=== PATIENT | female | born 1985 | race Caucasian/White ===

== ENCOUNTER 2017-12-26 16:57 | Emergency (ER) | payer OTHER ==
--- NOTE | 2017-12-26 17:16 | ED Physician Documentation ---
PD HPI NVD - Stated complaint Stated Complaint: VOM/16 WKS - Chief complaint Chief Complaint: Abd Pain - History obtained from History obtained from: Patient - History of Present Illness Timing - onset: Last night Timing - details: Abrupt onset, Still present Associated symptoms: Loss of appetite. No: Fever, Abdominal pain, Chest pain, Dysuria Contributing factors: No: Sick contact, Bad food, Travel Similar symptoms before: Has not had sx before (has had minimal nausea through the so far.) Recently seen: Not recently seen Review of Systems Constitutional: denies: Fever, Chills, Myalgias Nose: denies: Rhinorrhea / runny nose, Congestion Throat: denies: Sore throat Cardiac: denies: Chest pain / pressure, Palpitations Respiratory: denies: Dyspnea, Cough GI: reports: Nausea, Vomiting. denies: Abdominal Pain, Constipation, Diarrhea (but had loose stools today), Hematemesis : denies: Dysuria, Frequency Neurologic: reports: Generalized weakness. denies: Focal weakness, Numbness, Near syncope (but feeling posturally lightheaded.) PD PAST MEDICAL HISTORY - Present Medications Home Medications: Ambulatory Orders Medication Instructions Recorded Confirmed Pnv No.122/Iron/Folic Acid 1 each PO DAILY 12/26/17 12/26/17 [ Multi Tablet] - Allergies Allergies/Adverse Reactions: Allergies Allergy/AdvReac Type Severity Reaction Status Date / Time No Known Drug Allergies Allergy Verified 12/26/17 17:06 PD ED PE NORMAL - Vitals Vital signs reviewed: Yes - General General: Alert and oriented X 3, Well developed/nourished - HEENT HEENT: PERRL, Pharynx benign. No: Moist mucous membranes - Neck Neck: Supple, no meningeal sign, No adenopathy - Cardiac Cardiac: RRR, No murmur - Respiratory Respiratory: Clear bilaterally - Abdomen Abdomen: Normal bowel sounds, Soft, Non tender, Non distended, No organomegaly - Female Female : Deferred, Other (no pelvic, but did do bedside U/S showing normal IUP with movement and good heart beat. ) - Rectal Rectal: Deferred - Back Back: No CVA TTP - Derm Derm: Normal color, Warm and dry - Extremities Extremities: Normal ROM s pain, No edema, No calf tenderness / cord - Neuro Neuro: Alert and oriented X 3, No motor deficit, Normal speech Results - Vitals Vitals: Oxygen O2 Source Room air - Labs Labs: Laboratory Tests 12/26/17 12/26/17 18:11 18:11 Sodium 135 Potassium 3.3 L Chloride 104 Carbon Dioxide 23 Anion Gap 8.0 BUN 10 Creatinine 0.5 Estimated GFR (MDRD) 143 Glucose 139 H Calcium 8.9 Total Bilirubin 0.3 AST 21 ALT 11 Alkaline Phosphatase 48 Total Protein 6.5 L Albumin 3.5 Globulin 3.0 Albumin/Globulin Ratio 1.2 Lipase 33 Urine Color YELLOW Urine Clarity CLEAR Urine pH 6.0 Ur Specific Muse 1.025 Urine Protein NEGATIVE Urine Glucose (UA) NEGATIVE Urine Ketones >=80 H Urine Occult Blood LARGE H Urine Nitrite NEGATIVE Urine Bilirubin NEGATIVE Urine Urobilinogen 0.2 (NORMAL) Ur Leukocyte Esterase NEGATIVE Urine RBC 11-25 H Urine WBC 4-5 Ur Squamous Epith Cells MANY Squamous H Urine Bacteria Many H Ur Microscopic Review INDICATED Urine Culture Comments NOT INDICATED PD MEDICAL DECISION MAKING - ED course Complexity details: re-evaluated patient (feeling much better with fluids and meds. ), considered differential (Given the abruptness and severity of the nausea and vomiting, with minimal symptoms so far into the at 16 weeks, I think it may be more likely a viral illness. Exam without tenderness to suggest gallbladder or appendix. ), d/w patient - Sepsis Event Vital Signs: Oxygen O2 Source Room air Departure - Departure Disposition: 01 Home, Self Care Clinical Impression: Vomiting or nausea of , Dehydration Condition: Stable Record reviewed to determine appropriate education?: Yes Instructions: ED Nausea Vomiting Follow-Up: Gia Stevens MD [Primary Care Provider] - Comments: Use the Zofran if needed for nausea. Small frequent fluids tonight and some bland food. This may be caused by the although more likely is a viral stomach flu or such and should be improved in a couple of days. I say that because of the abruptness and severity of the nausea and vomiting to sound less likely to be the related alone. Recheck if not better over the next few days. Discharge Date/Time: 12/26/17 19:54
[2017-12-26] MEDS ORDERED: ONDANSETRON 4 MG/2 ML VIAL IVP STA (17:32)
[2017-12-26] MEDS ORDERED: SODIUM CHLORIDE 0.9% 1,000 ML IV ONE ×2 (17:32→17:33)
[2017-12-26] MEDS ORDERED: FAMOTIDINE 20 MG/2 ML VIAL IVP STA (17:33)
[2017-12-26] MEDS ORDERED: ACETAMINOPHEN 1,000 MG/100 ML 100 ML IV STA (17:33)
[2017-12-26 18:30] LABS: ALBUMIN 3.5 g/dL (3.2-5.5); ALBUMIN/GLOBULIN RATIO 1.2 (1.0-2.2); BILIRUBIN,TOTAL 0.3 mg/dL (0.2-1.0); CALCIUM 8.9 mg/dL (8.5-10.3); CREATININE 0.5 mg/dL (0.4-1.0); TOTAL PROTEIN 6.5 g/dL (6.7-8.2)
[2017-12-26 19:01] LABS: BILIRUBIN,URINE NEGATIVE (NEGATIVE); GLUCOSE, URINE (UA) NEGATIVE (NEGATIVE); KETONES,URINE (UA) >=80 mg/dL (NEGATIVE); LEUKOCYTE ESTERASE, URINE NEGATIVE (NEGATIVE); NITRITE,URINE NEGATIVE (NEGATIVE); OCCULT BLOOD,URINE LARGE (NEGATIVE); PROTEIN,URINE NEGATIVE (NEGATIVE); UROBILINOGEN,URINE 0.2 (NORMAL) E.U./dL (NORMAL)
[2017-12-26 19:12] LABS: CLARITY,URINE CLEAR (CLEAR)
[2017-12-26 19:16] LABS: BACTERIA,URINE Many /HPF (None Seen); SQUAMOUS EPITHELIAL CELL,UR MANY Squamous (<= Few)
[2017-12-26 19:51] VITALS: BP 107/70
== END 2017-12-26 19:54 | disposition home or self-care (01) ==
LOC: ED 16:57
DX: O21.8 Other vomiting complicating pregnancy (principal); Z3A.16 16 weeks gestation of pregnancy; O99.89 Other specified diseases and conditions complicating pregnancy, childbirth and the puerperium; E86.0 Dehydration
CPT/HCPCS: 36415; 80053; 81001; 83690; 99284; J0131; 81003; 87086; 96361; 96374; 96375

== ENCOUNTER 2018-06-15 22:17 | Outpatient (CLI) | payer OTHER ==
[2018-06-15 22:34] VITALS: BP 118/66
--- NOTE | 2018-06-16 00:26 | Ultrasound Report ---
Reason: RENATO for post dates, [facility] 06/13/2108 Procedure Date: 06/15/2018 Accession Number: [id number] / [id number] Procedure: US - OB Limited CPT Code: FULL RESULT: EXAM: LIMITED OBSTETRICAL ULTRASOUND EXAM DATE: 06/15/2018 11:40 PM. CLINICAL HISTORY: RENATO for post dates, [facility] 06/13/2108. COMPARISON: None. TECHNIQUE: Real-time sonographic evaluation of the fetus performed by the skein yarn dyer helper. Multiple computer help desk representative static images were saved for review. DATING: Established EGA 40 weeks 3 days with MARY ANN 06/13/2018. GENERAL EVALUATION Muller . Cardiac activity: 129 bpm. movement: Visualized. Presentation: Cephalic. Placenta: Left fundal position. Amniotic fluid: Normal. RENATO 10.1 cm. MVP 3.4 cm. IMPRESSION: 1. Muller live intrauterine with gestational age 40 weeks 3 days based on established MARY ANN. 2. Normal RENATO. RADIA
== END 2018-06-16 00:35 | disposition home or self-care (01) ==
LOC: WFO 22:17 → FBP 22:19 → WFO 06-16 00:35
PROVIDERS: ATTEND Obstetrics & Gynecology
DX: O36.8130 Decreased fetal movements, third trimester, not applicable or unspecified (principal); Z3A.40 40 weeks gestation of pregnancy
CPT/HCPCS: 76815; 99213

== ENCOUNTER 2020-12-03 07:55 | Outpatient (CLI) | payer BC, OTHER | END 2020-12-03 23:59 | disposition home or self-care (01) | LOC: LAB.N 07:55 | PROVIDERS: ATTEND Family Medicine | DX: R05 Cough (principal); Z20.822 Contact with and (suspected) exposure to COVID-19 ==

== ENCOUNTER 2021-11-03 11:25 | Emergency (ER) | payer BC ==
[2021-11-03 11:38] VITALS: BP 139/90
--- NOTE | 2021-11-03 11:59 | XRAY Report ---
PROCEDURE: Chest 1 View X-Ray INDICATIONS: Cough with SOA TECHNIQUE: One view of the chest was acquired. COMPARISON: None FINDINGS: Surgical changes and devices: None. Lungs and pleura: No pleural effusions or pneumothorax. Lungs are clear. Mediastinum: Mediastinal contours appear normal. Heart size is normal. Bones and chest wall: No suspicious bony lesions. Overlying soft tissues appear unremarkable. IMPRESSION: No acute cardiopulmonary disease process. Reviewed by: Pat Muniz MD, PhD on 11/03/2021 11:57 AM PDT Approved by: Pat Muniz MD, PhD on 11/03/2021 11:57 AM PDT Station ID: [id number]
--- NOTE | 2021-11-03 13:42 | ED Physician Documentation ---
PD HPI DYSPNEA - Stated complaint Stated Complaint: COUGH - Chief complaint Chief Complaint: Resp - History obtained from History obtained from: Patient - Additional information Additional information: Otherwise healthy 36-year-old woman has been sick with a minimally productive but severe cough for the last 2 weeks. She denies fevers or chills. She has had several negative COVID tests at home. Review of Systems Constitutional: reports: Fatigue (From poor sleep). denies: Fever, Chills Nose: denies: Rhinorrhea / runny nose Cardiac: denies: Chest pain / pressure, Palpitations Respiratory: reports: Dyspnea PD PAST MEDICAL HISTORY - Past Medical History Cardiovascular: None Respiratory: None Neuro: None Endocrine/Autoimmune: None GI: None : None HEENT: None Psych: None Musculoskeletal: None Derm: None - Past Surgical History Past Surgical History: Yes /CRYPTOGRAPHER: Other HEENT: Tonsil/Adenoidectomy, Other - Present Medications Home Medications: Ambulatory Orders Medication Instructions Recorded Confirmed No122/Iron/Folic Acid 1 each PO DAILY 12/26/17 12/26/17 [ Multi Tablet] Albuterol Sulf [Ventolin Hfa 1 - 2 puffs INH Q4HR PRN #1 gm 11/03/21 Inhaler] Benzonatate [Tessalon] 200 mg PO QID PRN #20 cap 11/03/21 Doxycycline Hyclate 100 mg PO BID #14 tab.sr 11/03/21 - Allergies Allergies/Adverse Reactions: Allergies Allergy/AdvReac Type Severity Reaction Status Date / Time No Known Drug Allergies Allergy Verified 11/03/21 11:38 - Social History Does the pt smoke?: No Smoking Status: Never smoker Does the pt drink ETOH?: No Does the pt have substance abuse?: No - Immunizations Immunizations are current?: Yes - POLST Patient has POLST: No PD ED PE NORMAL - Vitals Vital signs reviewed: Yes - General General: Alert and oriented X 3, No acute distress - HEENT HEENT: PERRL, EOMI - Neck Neck: Supple, no meningeal sign, No bony TTP - Cardiac Cardiac: RRR, No murmur - Respiratory Respiratory: Other (Mild expiratory wheezing with occasional bronchitic coughing, no focal breath sounds otherwise.) - Abdomen Abdomen: Non tender - Derm Derm: No rash - Extremities Extremities: No edema, No calf tenderness / cord - Neuro Neuro: Alert and oriented X 3, Normal speech Results - Vitals Vitals: Vital Signs - 24 hr 11/03/21 11:34 Temperature 35.3 C L Heart Rate 72 Respiratory 16 Rate Blood Pressure 139/90 H O2 Saturation 100 Oxygen O2 Source Room air PD MEDICAL DECISION MAKING - ED course ED course: 36-year-old woman with productive cough of long enough duration probably deserves a trial of antibiotics despite negative chest x-ray. Departure - Departure Disposition: 01 Home, Self Care Clinical Impression: Bronchitis Condition: Good Record reviewed to determine appropriate education?: Yes Instructions: ED Bronchitis Asthmatic Prescriptions: Albuterol Sulf [Ventolin Hfa Inhaler] 1 - 2 puffs INH Q4HR PRN #1 gm PRN Reason: Shortness Of Air/Wheezing Doxycycline Hyclate 100 mg PO BID #14 tab.sr Benzonatate [Tessalon] 200 mg PO QID PRN #20 cap PRN Reason: Cough Comments: I sent your prescriptions electronically to [facility] in [place]. Return if you worsen, follow-up with your doctor in a week if not better. As discussed try not to go out in the sun too much wear high SPF when outdoors. Discharge Date/Time: 11/03/21 13:46
== END 2021-11-03 13:46 | disposition home or self-care (01) ==
LOC: ED 11:25
DX: J40 Bronchitis, not specified as acute or chronic (principal); Z20.822 Contact with and (suspected) exposure to COVID-19
CPT/HCPCS: 99282; 99284